=== PATIENT | female | born 1960 | race African-American/Black ===

== ENCOUNTER 2018-12-07 06:43 | Emergency (ER) | payer OTHER ==
[~2018-12-07] VITALS: Ht 162.6 cm; Wt 77.8 kg
[2018-12-07] MEDS ORDERED: OLME20TA13 PO (07:24)
[2018-12-07] MEDS ORDERED: LEVO100T9 MT (07:26)
[2018-12-07] MEDS ORDERED: AMLODIPINE 5MG TABLET PO ONE (08:00)
[2018-12-07 08:04] LABS: EOSINOPHILS % 2.4 % (0.0-5.0); HEMATOCRIT. 46.8 % (36.0-48.0); HEMOGLOBIN. 15.7 g/dL (12.0-16.0); LYMPHOCYTES % 45.2 % (20.0-50.0); MEAN CORPUSCULAR HEMOGLOBIN 31.4 pg (28.0-32.0); MEAN CORPUSCULAR VOLUME 93.6 fL (81.0-99.0); MEAN PLATELET VOLUME 9.1 fl (7.4-10.4); MONOCYTES % 8.5 % (2.0-8.0); NEUTROPHILS % 42.9 % (40.0-76.0); PLATELET 225 x1000/uL (130-400); RED BLOOD CELL COUNT 5.01 mill/uL (4.2-5.4); RED CELL DISTRIBUTION WIDTH 13.9 % (11.6-14.6)
[2018-12-07 08:11] LABS: CHLORIDE 106 mEq/L (98-107)
[2018-12-07 08:19] LABS: T4 FREE 0.55 ng/dL (0.76-1.46)
[2018-12-07 09:16] VITALS: BP 161/105
== END 2018-12-07 16:09 | disposition home or self-care (01) ==
LOC: ER 06:43
DX: E03.9 Hypothyroidism, unspecified (principal); E78.00 Pure hypercholesterolemia, unspecified; I10 Essential (primary) hypertension; E05.90 Thyrotoxicosis, unspecified without thyrotoxic crisis or storm; Z91.14 Patient's other noncompliance with medication regimen; Z98.890 Other specified postprocedural states; Z90.710 Acquired absence of both cervix and uterus; Z79.899 Other long term (current) drug therapy; Z92.3 Personal history of irradiation
CPT/HCPCS: 36415; 84439; 84443; 84481; 93005; 99284